=== PATIENT | female | born 1965 | race Two or more races ===

== ENCOUNTER 2023-12-03 05:25 | Emergency (ER) | payer OTHER ==
[~2023-12-03] VITALS: Ht 149.9 cm; Wt 56.7 kg
[2023-12-03 05:25] VITALS: BP 160/79; PULSE 94; RESP 20; TEMP 97.8; O2SAT 100
[2023-12-03 06:26] LABS: BASOPHILS % (AUTO) 0.6 % (0.0-2.0); EOSINOPHILS # (AUTO) 0.2 K/uL (0-0.4); EOSINOPHILS % (AUTO) 2.2 % (0.0-4.0); HEMATOCRIT 32.8 % (36-48); HEMOGLOBIN 10.9 g/dL (12.0-16.0); LYMPHOCYTES # (AUTO) 1.8 K/uL (2.5-16.5); LYMPHOCYTES % (AUTO) 24.3 % (20.5-51.1); MEAN CORPUSCULAR HEMOGLOBIN 30 pg (27-31); MEAN CORPUSCULAR HGB CONC 33 g/dL (33-37); MEAN CORPUSCULAR VOLUME 90.6 fL (80-94); MONOCYTES # (AUTO) 0.5 K/uL (0.8-1.0); MONOCYTES % (AUTO) 7.2 % (1.7-9.3); NEUTROPHILS # (AUTO) 4.9 K/uL (1.8-7.7); NEUTROPHILS % (AUTO) 65.7 % (42.2-75.2); PLATELET COUNT (AUTO) 245 K/uL (140-450); RED BLOOD CELL COUNT(AUTO) 3.62 MIL/uL (4.20-5.40); RED CELL DISTRIBUTION WIDTH 12.5 % (11.6-13.7); WHITE BLOOD COUNT (AUTO) 7.5 K/uL (4.8-10.8)
[2023-12-03 06:27] LABS: BILIRUBIN,URINE 2+ (NEGATIVE); BLOOD, URINE 1+ (NEGATIVE); LEUKOCYTE ESTERASE ,URINE TRACE (NEGATIVE); NITRITE, URINE POSITIVE (NEGATIVE); PROTEIN,URINE 2+ (NEGATIVE); UGLUCOSE TRACE (NEGATIVE)
[2023-12-03 06:28] LABS: COLOR,URINE ORANGE (YELLOW)
[2023-12-03] MEDS: KETOROLAC 60 MG/2 ML VIAL IM ONE (06:33)
[2023-12-03 06:41] LABS: ANION GAP 11.3 (8-16); CALCIUM 8.3 mg/dL (8.5-10.1); CARBON DIOXIDE 27.1 mmol/L (21-32); CREATININE 0.8 mg/dL (0.6-1.3); POTASSIUM 3.4 mmol/L (3.5-5.1)
[2023-12-03 06:46] LABS: MAGNESIUM 1.5 mg/dL (1.8-2.4); PHOSPHORUS 3.2 mg/dL (2.5-4.9)
[2023-12-03 06:55] LABS: ICTOTEST POSITIVE (NEGATIVE)
[2023-12-03 06:57] LABS: WBC,URINE 0-5 /HPF (0-5)
[2023-12-03 06:58] LABS: BACTERIA,URINE FEW /HPF (None Seen); SQUAMOUS EPITHELIAL CELL,UR 0-3 (FEW) /LPF (0-3 (FEW))
[2023-12-03 06:59] LABS: APPEARANCE,URINE CLEAR (CLEAR)
[2023-12-03] MEDS ORDERED: IBUP-2213 PO (06:59)
[2023-12-03] MEDS ORDERED: CIPR500T4 PO (06:59)
[2023-12-03] MEDS: POTASSIUM CHLORIDE 10 MEQ TABER PO ONE (07:01)
[2023-12-03 07:05] VITALS: BP 160/79; PULSE 94; RESP 20; TEMP 97.8; O2SAT 100
== END 2023-12-03 07:05 | disposition home or self-care (01) ==
LOC: MED 05:25
DX: N39.0 Urinary tract infection, site not specified (principal); R25.2 Cramp and spasm; E87.6 Hypokalemia; I10 Essential (primary) hypertension; Z79.899 Other long term (current) drug therapy; Z88.0 Allergy status to penicillin; Z88.1 Allergy status to other antibiotic agents
CPT/HCPCS: 36415; 80048; 81001; 82550; 83735; 84100; 85025; 96372; 99283; J1885